=== PATIENT | female | born 1960 | race Caucasian/White ===

== ENCOUNTER → 2016-08-31 | Outpatient (CLI) | payer MEDICAID | LOC: FIMAGING 10:56 | PROVIDERS: ATTEND Registered Nurse | DX: Z12.31 Encounter for screening mammogram for malignant neoplasm of breast (principal) | CPT/HCPCS: G0202 ==

== ENCOUNTER 2016-10-19 16:06 | Emergency (ER) | payer MEDICAID ==
--- NOTE | 2016-10-19 18:28 | EDPHY ---
H & P Time Seen by Provider: 10/19/16 17:08 HPI/ROS: CHIEF COMPLAINT: Right hand injury HISTORY OF PRESENT ILLNESS: 56-year-old female presents to the emergency department with injury to her right hand. Patient was at work and accidentally crushed her right hand, 3rd and 4th fingers under garage door. The incident happened just prior to arrival. She is right-hand dominant. She complains of throbbing pain in her right 3rd finger as well as some mild pain in her right 4th finger. Denies any other trauma or injury. ROS: [denies numbness or tingling in her fingers, retained foreign body, injury to the right wrist. ] Past Medical/Surgical History: Hernia repair, tonsillectomy, tubal ligation, macular degeneration Social History: Smoking Status: Never smoked Physical Exam: Right 3rd finger reveals subungual hematoma. Very tender to palpate. She is able to flex extend her fingers. She has small superficial abrasion to the distal aspect, palmar aspect of the right 4th finger as well. No rotational deformities noted. The other fingers do not appear injured. Normal sensation to light touch with normal 2 point discrimination. Strong radial pulse at the right wrist. Constitutional: Initial Vital Signs Temperature (C) 36.9 C 10/19/16 16:59 Heart Rate 68 10/19/16 16:59 Respiratory Rate 18 10/19/16 16:59 Blood Pressure 159/77 H 10/19/16 16:59 O2 Sat (%) 94 10/19/16 16:59 O2 Delivery Mode Room Air Allergies/Adverse Reactions: acetaminophen [From Percocet] Allergy (Verified 10/19/16 16:58) oxycodone HCl [From Percocet] Allergy (Verified 10/19/16 16:58) Home Medications: Medication Instructions Recorded Cephalexin [Keflex] 500 mg PO QID #28 cap 10/19/16 Hydrochlorothiazide 10/19/16 MDM/Departure - MDM Imaging Results: Imaging Impressions Hand X-Ray 10/19/16 17:03 Impression: Transverse fracture through the distal tuft of the right third finger. Procedures: After consent was obtained from the patient, the patient requested digital block. Digital block using 1% lidocaine without epinephrine 0.5% bupivacaine without epinephrine was instilled with the base of the right 3rd finger. The subungual hematoma was subsequently drained using electrocautery. Bacitracin and dressing applied. Patient was placed in Alumafoam splint and examined post application in good placement with normal CUSTOMER SERVICE ASSISTANT. Medications Given: Discontinued Medications Diphtheria/Tetanus/Acell Pertussis (Boostrix) 0.5 ml IM .ONCE ONE Stop: 10/19/16 18:34 Last Admin: 10/19/16 18:39 Dose: 0.5 ml ED Course/Re-evaluation: 56-year-old male presents with injury to her right middle finger and 4th finger. X-rays reveal tuft fracture of the right middle finger. She also has some global hematoma which was drained, see procedure note. The patient will be started on oral antibiotics, Keflex, given her tuft fracture and now drained subungual hematoma the same finger. She was placed in a splint and given orthopedic hand surgical referral. - Depart Disposition: Home, Routine, Self-Care Clinical Impression: Subungual hematoma of right middle finger, Tuft fracture right middle finger Contusion of right ring finger Qualifiers: Encounter type: initial encounter Damage to nail status: with damage Qualified Code(s): S60.141A - Contusion of right ring finger with damage to nail, initial encounter Condition: Good Instructions: Subungual Hematoma (ED), Finger Fracture (ED), Contusion in Adults (ED), Acute Wounds (ED) Additional Instructions: You have a fracture in the very tip of your right 3rd finger. Because we have drain the blood underneath your fingernail, you will be started on oral Keflex, antibiotics, to help prevent any kind of infection. Keep splint on until follow -up with orthopedic hand surgeon. Ibuprofen 600 mg every 8 hours as needed for pain. Return to the emergency department if he developed numbness or tingling in her fingers or if you feel worse in any way. Prescriptions: Cephalexin [Keflex] 500 mg PO QID #28 cap Referrals: Nghia Angeles MD [Medical Doctor] - 2-3 days, call for appt. (Hand surgeon on -call)
[2016-10-19] MEDS ORDERED: TDAP ADULT 0.5 ML INJ (BOOSTRIX) IM ONE (18:33)
[2016-10-19 18:45] VITALS: BP 125/74; PULSE 75; RESP 16; TEMP 98.2; O2SAT 98
== END 2016-10-19 18:46 | disposition home or self-care (01) ==
DX: S60.131A Contusion of right middle finger with damage to nail, initial encounter (principal); S60.141A Contusion of right ring finger with damage to nail, initial encounter; S62.632A Displaced fracture of distal phalanx of right middle finger, initial encounter for closed fracture; Z23 Encounter for immunization; W23.0XXA Caught, crushed, jammed, or pinched between moving objects, initial encounter; Y99.0 Civilian activity done for income or pay
CPT/HCPCS: L3925

== ENCOUNTER 2018-05-01 10:44 | Emergency (ER) | payer MEDICAID ==
--- NOTE | 2018-05-01 11:16 | EDPHY ---
General Time Seen by Provider: 05/01/18 11:04 Narrative: CLINICAL IMPRESSION: Left sarah contusion ASSESSMENT/PLAN: 57-year-old female presents to the emergency department several weeks after falling on her left sarah with complaints of persistent swelling and concern for underlying fracture. However, patient has been ambulatory and going to work on her leg. She has no open wounds. No clinical signs of deep space abscess, cellulitis, necrotizing fasciitis, compartment syndrome. X-rays negative for acute fracture and bony abnormality. An Guero wrap was applied for compression and patient advised elevate the legs. Ortho referral provided. Warning signs return to ED sooner alignment discharge. DIFFERENTIAL DX: Differential includes but not limited to acute fracture, strain/sprain, joint dislocation, soft tissue contusion ED PROCEDURES: Procedure: Splint placement. A Guero wrap splint was applied to left lower leg by floor technician, supervised by myself. After application of the splint I returned and re-examined the patient. The splint was adequately immobilizing the joint and distal to the splint the patient's circulation and sensation was intact. ED COURSE: 11:45 a.m.: Preliminary review of x-rays by myself shows no evidence of acute fracture. Will recommend compression, elevation and PCP follow-up. CHIEF COMPLAINT: Left lower leg pain HPI: 57-year-old female presents to the emergency department with persistent left lower leg pain and swelling after falling on the leg on the 6th of this month. Patient reports stumbling and striking the sarah on a step. She was not evaluated at that time. She never had x-rays. She reports persistent swelling mostly after sitting or standing all day at work. She has been ambulatory. No open wounds. No loss of sensation to the foot or toes. No ankle pain. Chronic knee pain that is unchanged. No prior surgery to this leg. No fevers or chills. PAST MEDICAL HISTORY: See nurse triage note Pertinent Past Surgical History: None reported Social History: Otherwise healthy REVIEW OF SYSTEMS: All other systems negative Constitutional: No fever, no chills Musculoskeletal: No deformity, + joint pain Skin: No rashes, color change or open wounds. Neurological: No sensory loss or weakness. PHYSICAL EXAM: General Appearance: Alert, oriented, appropriate for age, cooperative, NAD, well hydrated, non-toxic appearing, VSS, no hypoxia. Neurological: Alert and oriented x 3, normal sensation and strength of extremities Skin: Warm, dry, no rashes, no nodules on palpation. Musculoskeletal: Contusion noted to left anterior sarah. No overlying erythema , warmth, open wound or sign of infection or deep space abscess or necrotizing fasciitis. MEDICAL DECISION MAKING: Patient was seen independently. Secondary supervising physician at time of evaluation was Dr. Rangel. Diagnosis: Left sarah contusion. New, requires workup Summary: See assessment and plan for summary of ED visit Independent visualization of images, tracing, or specimens yes. Patient Progress: Improved, stable for discharge. - Diagnostics Imaging Results: Imaging Impressions Tibia/Fibula X-Ray 05/01/18 11:15 Impression: Pretibial soft tissue swelling, with no fracture, periostitis, or radiopaque foreign body. - History Smoking Status: Never smoked - Objective Vital Signs: Initial Vital Signs Temperature (C) 36.7 C 05/01/18 10:53 Heart Rate 74 05/01/18 10:53 Respiratory Rate 18 05/01/18 10:53 Blood Pressure 145/96 H 05/01/18 10:53 O2 Sat (%) 94 05/01/18 10:53 O2 Delivery Mode Room Air Allergies/Adverse Reactions: acetaminophen [From Percocet] Allergy (Verified 05/01/18 10:53) oxycodone HCl [From Percocet] Allergy (Verified 05/01/18 10:53) Home Medications: Medication Instructions Recorded Cephalexin [Keflex] 500 mg PO QID #28 cap 10/19/16 Hydrochlorothiazide 10/19/16 Departure - Departure Disposition: Home, Routine, Self-Care Clinical Impression: Contusion of leg, left Qualifiers: Encounter type: initial encounter Qualified Code(s): S80.12XA - Contusion of left lower leg, initial encounter Condition: Good Instructions: Contusion in Adults (ED) Additional Instructions: DISCHARGE INSTRUCTIONS FROM YOUR DOCTOR Thank you for visiting our emergency department today. You were treated by a physician molding line assistant today and your case was reviewed with our ED Attending physician. Please keep in mind that discharge from the emergency department does not mean that there is nothing wrong - it simply means that we have not identified an emergency condition that requires further evaluation or treatment in the hospital. You should always plan to follow up with primary care for re- evaluation of your condition in the next 2-3 days. If you have been referred to a specialist, please call as soon as possible (today or tomorrow) to schedule your follow up appointment at the appropriate time. PRELIMINARY REVIEW OF THE X-RAYS OF YOUR LEG SHOW NO EVIDENCE OF FRACTURE OR BONY ABNORMALITY. THIS MAY BE A VERY DEEP SOFT TISSUE BRUISE OR BONE BRUISE. PLEASE APPLY COMPRESSION FROM GUERO BANDAGE OR COMPRESSION STOCKINGS. ELEVATE HER LEG WHEN POSSIBLE. PLEASE FOLLOW-UP WITH PRIMARY CARE. RETURN TO THE EMERGENCY DEPARTMENT FOR PERSISTENT SWELLING, PAIN, SEVERE PAIN, LOSS OF SENSATION TO FOOT OR TOES, REDNESS WARMTH OR HEAT TO THE SKIN, FEVER OR ANY OTHER CONCERNS FOR INFECTION. People present with illnesses and injuries in different ways, and it is always possible that we have missed something. You may always return for re-evaluation if symptoms worsen or if they are not improving or if you develop new/different symptoms. Again, thank you for choosing our emergency department. We hope that you feel better. Referrals: NONE *PRIMARY CARE P,. [Primary Care Provider] - As per Instructions Jagdish Abdalla MD [Medical Doctor] - 3-4 days, if not improved
[2018-05-01 12:02] VITALS: BP 133/88
== END 2018-05-01 12:03 | disposition home or self-care (01) ==
DX: S80.12XA Contusion of left lower leg, initial encounter (principal); W19.XXXA Unspecified fall, initial encounter